=== PATIENT | male | born 1990 | race American Indian/Alaskan Native ===

== ENCOUNTER 2021-07-06 08:34 | Outpatient (CLI) | payer OTHER ==
--- NOTE | 2021-07-06 09:31 | XRay Report ---
CHEST 2 VIEWS INDICATION: RULE OUT ACTIVE TB DISEASE. COMPARISON: none FINDINGS: Support devices: None. Heart: Within normal limits. Lungs/pleura: No acute air space or interstitial disease. No pneumothorax. Additional findings: None. IMPRESSION: No acute findings. No evidence for primary or reactive tuberculosis in the chest. Signer Name: Marv Winchester Jr, MD Signed: 07/06/2021 9:26 AM Workstation Name: [id number]
== END 2021-07-06 08:35 | disposition home or self-care (01) ==
LOC: XRAY 08:34
PROVIDERS: ATTEND Psychiatry & Neurology Psychiatry
DX: A15.9 Respiratory tuberculosis unspecified (principal)
CPT/HCPCS: 71046